=== PATIENT | female | born 1980 | race Two or more races ===

== ENCOUNTER 2023-06-26 16:03 | Emergency (ER) | payer BC ==
[~2023-06-26] VITALS: Ht 162.6 cm; Wt 112.0 kg
[2023-06-26 16:43] VITALS: BP 147/85; PULSE 92; RESP 16; O2SAT 96
== END 2023-06-26 17:13 | disposition left against medical advice (07) ==
LOC: ER 16:03
DX: R21 Rash and other nonspecific skin eruption (principal); Z53.21 Procedure and treatment not carried out due to patient leaving prior to being seen by health care provider